=== PATIENT | male | born 1980 | race Caucasian/White ===

== ENCOUNTER 2021-08-17 11:08 | Emergency (ER) | payer BC, SELFPAY ==
[2021-08-17] VITALS (13 sets, daily range): BP systolic 120–148; BP diastolic 80–92; PULSE 84–110; RESP 10–23; TEMP 36.6; O2SAT 97–100
--- NOTE | ~2021-08-17 | XR_ITS ---
EXAMINATION: XR chest 1V portable EXAM DATE: 08/17/2021 12:15 INDICATION: Chest pain. TECHNIQUE: Portable AP frontal chest x-ray was obtained. There is no prior study for comparison. FINDINGS: The lungs are clear. There are no pleural effusions. The cardiomediastinal silhouette is within normal limits. There is no pneumothorax suspected. The bones and soft tissues are unremarkab le. IMPRESSION: No acute cardiopulmonary findings. Reviewed, dictated and finalized at location A.
--- NOTE | ~2021-08-17 | CT_ITS ---
EXAMINATION: CT abdomen pelvis w con DATE: 08/17/2021 13:48 INDICATION: Right lower quadrant abdominal pain TECHNIQUE: Computed tomography (CT) of the abdomen and pelvis was performed with 100 cc Omnipaque 350 intravenous contrast. Automated exposure control and iterative reconstruction technique were employe d. Exam dose: 659.91 mGy-cm total exam DLP. COMPARISON: None. FINDINGS: Minimal dependent atelectasis at the lower lobes. The liver, gallbladder, bile ducts, pancreas, pancreatic duct, spleen, and adrenal glands are unremar kable. Up to approximately 3.2 cm cystic lesion of the right renal upper hilum is noted. The margins are not circumscribed throughout. Cystic hypernephroma is not excluded. Further evaluation with MR examinati on is recommended. No other renal mass lesion or urinary tract calculus or hydroureteronephrosis is detected. Normal caliber of the abdominal aorta. No intraperitoneal or retroperitoneal or pelvic mass lesion or adenopathy or ascites. There are fluid containing small bowel segments and fluid levels of the colon, which is not normal un less the patient has had recent enemas. No small or large bowel abnormal dilatation or bowel wall thi ckening. No pneumatosis. Consider enterocolitis. Normal appendix. No evidence of appendicitis. The urinary bladder, prostate gland and seminal vesicles are unremarkable. Very small fat-containing umbilical hernia. IMPRESSION: 3.2 cm cystic lesion of right renal upper hilum, with some non-circumscribed margins; cy stic hypernephroma is not excluded. MRI renal examination is recommended. Fluid distended small bowel segments and fluid levels of the colon, suggesting enterocolitis Normal appendix Reviewed, dictated and finalized at Location [facility]. Reviewed, dictated and finalized at location B. IMPRESSION: 3.2 cm cystic lesion of right renal upper hilum, with some non-cir cumscribed margins; cystic hypernephroma is not excluded. MRI renal examination is recommended. Fluid distended small bowel segments and fluid levels of the colon, suggesting enterocolitis Normal appendix
--- NOTE | 2021-08-17 11:41 | ECG_ITS ---
Measurements Intervals [place] Rate: 94 P: 57 WA: 162 QRS: 38 QRSD: 88 T: 94 QT: 336 QTc: 420 Interpretive Statements SINUS RHYTHM WITH MARKED SINUS ARRHYTHMIA NONSPECIFIC T-WAVE ABNORMALITY- LAT/HIGH LAT LEADS BASELINE ARTIFACT- I, II, III BORDERLINE ECG Electronically Signed On 08-17-2021 12:15:51 CDT by Nicolás Gasca D.O.
[2021-08-17 11:44] LABS: Basophils Percent Auto 0.2 % (0.2-1.2); Hemoglobin 16.8 g/dL (14.0-18.0); Immature Granulocyte Absolute 0.04 K/mm3 (0.00-0.031); Immature Granulocyte Percent A 0.3 % (0-0.5); Lymphocytes Absolute Auto 0.39 K/mm3 (0.9-3.2); Lymphocytes Percent Auto 3.1 % (18.3-44.2); Mean Corpuscular HGB Conc 33.6 g/dl (32-36); Mean Corpuscular Hemoglobin 29.7 pg (26-34); Mean Corpuscular Volume 88.5 fl (80-100); Mean Platelet Volume 8.9 fl (7.4-10.4); Monocytes Absolute Auto 0.3 K/mm3 (0.1-0.6); Monocytes Percent Auto 2.7 % (2.6-8.5); Neutrophils Absolute Auto 11.9 K/mm3 (1.3-6.7); Neutrophils Percent Auto 93.7 % (45.5-73.1); Platelet Count Result 257 k/mm3 (150-375); Red Blood Count 5.65 M/mm3 (4.6-6.20); Red Cell Distribution Width 13.2 % (11.5-14.5); White Blood Count 12.7 K/mm3 (4.5-10.0)
[2021-08-17 12:09] LABS: Alanine Aminotransferase 25 U/L (4-50); Albumin Level 5.7 g/dL (3.5-5.1); Alkaline Phosphatase 62 U/L (38-126); Anion Gap 15 mmol/L (8-16); Aspartate Amino Transferase 34 U/L (17-59); Bilirubin,Total 1.5 mg/dL (0.2-1.3); Blood Urea Nitrogen 27 mg/dL (9-20); Calcium 10.9 mg/dL (8.4-10.2); Carbon Dioxide 24 mmol/L (22-30); Chloride 104 mmol/L (98-107); Estimated CRCL calculation 62 ml/min; Estimated Glomerular Filt Rate 52; Glucose 117 mg/dL (65-110); Lipase 69 U/L (23-300); Potassium 4.6 mmol/L (3.4-5.0); Sodium 143 mmol/L (137-145)
[2021-08-17] MEDS: LACTATED RINGERS 1,000 ML 999 ML IV CONT ×2 (12:21→12:44)
[2021-08-17] MEDS: ONDANSETRON INJ 4 MG/2 ML VIAL IV PUSH (12:22)
--- NOTE | 2021-08-17 12:40 | ED.NAVMDI ---
HPI - Nausea/Vomiting/Diarrhea General Chief complaint: Nausea/Vomiting/Diarrhea Stated complaint: weak, dizzy, vomiting Time Seen by Provider: 08/17/21 11:37 Source: patient Mode of arrival: ambulatory Limitations: no limitations History of Present Illness HPI Narrative: This is a 40 year old male who presents for evaluation of vomiting and diarrhea. Patient states his daughter is recovering from a stomach bug . He states she was having nausea , vomiting and diarrhea for 3 days and today she seems better. He developed similar symptoms this morning at 2 am. He reports vomiting and diarrhea for the past 8 hours. He states his nausea and vomiting has improved and he was able to drink water over the past hour with our vomiting. He is having cramping upper abdominal pain. He also states he believes he has lost 9 pound today. He is unsure of fever or chills. He denies bloody stools but he states his emesis was bilious on his last episode. He also reports intermittent midsternal chest pain that radiates to his back. He also reports weakness. Related Data Allergies Allergy/AdvReac Type Severity Reaction Status Date / Time esomeprazole AdvReac Unknown Abdominal Verified 08/17/21 12:06 Pain Review of Systems Review of Systems: All systems reviewed & are unremarkable except as noted in HPI and below PMFSH Past Medical History Medical History (Updated 08/17/21 @ 14:22 by Camryn Lovelace MD) Arrhythmia Surgical History Surgical History (Updated 08/17/21 @ 12:51 by Camryn Lovelace MD) No pertinent past surgical history Social History Social History (Updated 08/17/21 @ 12:51 by Camryn Lovelace MD) Smoking status: Never smoker Exam Const: General: no acute distress and alert Orientation/consciousness: patient oriented x3 HENMT: Head: normocephalic and atraumatic Face and sinus: face symmetric Eyes: Pupils: Equal, round and reactive pupils present EOM: EOMs intact bilaterally Resp: Effort & Inspection: normal respiratory effort and no retractions Auscultation: clear to auscultation bilaterally Cardio: Rate: regular rate Rhythm: regular rhythm Heart sounds: no murmurs GI: GI Palp: Yes Soft to palpation, Yes Tenderness to palpation present (GI) (RLQ) and No Guarding due to palpation present (GI) Auscultation: normal bowel sounds Skin: General skin exam: normal color Rashes: no rashes Neuro: General: patient oriented x3, moves all extremities and CN's II-XI intact bilaterally Psych: Mental Status: mental status grossly normal Affect: normal affect Course Reevaluation(s) Reevaluation #1: Patient states he feels alot better and he denies nausea or vomiting. I reviewed CT and he is aware of CT showing renal abnormality. Date: 08/17/21 Time: 14:21 Vital Signs Vital signs: Vital Signs Pulse Rate 105 H 08/17/21 11:21 Respiratory Rate 21 H 08/17/21 11:21 Temperature 97.9 F 08/17/21 11:25 Pulse Rate 95 08/17/21 14:30 Respiratory Rate 20 08/17/21 14:30 Blood Pressure 142/87 H 08/17/21 14:30 Pulse Oximetry 100 08/17/21 14:30 MDM - Nausea/Vomiting/Diarrhea Lab Data Attestation: I reviewed the patient's lab results. Result diagrams: 08/17/21 11:36 08/17/21 11:36 Labs: Lab Results 08/17/21 08/17/21 08/17/21 Range/Units 11:36 11:36 12:35 WBC 12.7 H (4.5-10.0) K/mm3 RBC 5.65 (4.6-6.20) M/mm3 Hgb 16.8 (14.0-18.0) g/dL Hct 50.0 (42.0-52.0) % MCV 88.5 (80-100) fl MCH 29.7 (26-34) pg MCHC 33.6 (32-36) g/dl RDW 13.2 (11.5-14.5) % Plt Count 257 (150-375) k/mm3 MPV 8.9 (7.4-10.4) fl Immature Gran % (Auto) 0.3 (0-0.5) % Neut % (Auto) 93.7 H (45.5-73.1) % Lymph % (Auto) 3.1 L (18.3-44.2) % [place] % (Auto) 2.7 (2.6-8.5) % Eos % (Auto) 0.0 (0-4.4) % Baso % (Auto) 0.2 (0.2-1.2) % Lymph # (Auto) 0.39 L (0.9-3.2) K/mm3 [place] # (Auto) 0.3 (0.1-
[2021-08-17 13:09] LABS: Add Urine Microscopic? YES; Appearance Urine Clear (Clear); Bilirubin Urine 1+ (Negative); Blood Urine Negative (Negative); Color Urine Amber (Yellow); Glucose Urine UA Negative (Negative); Ketones Urine 1+ mg/dL (Negative); Leukocyte Esterase Ur Negative LEU/UL (Negative); Mucus Urine Heavy /lpf; Nitrate Urine Negative (Negative); Protein Urine 2+ mg/dL (Negative)
[2021-08-17 13:15] LABS: Specific Grav Ur 1.031 (1.001-1.035)
[2021-08-17 13:15] LABS: Prothrombin Time 12.9 Seconds (11.1-14.7)
[2021-08-17 13:16] LABS: Partial Thromboplastin Time 26.9 SECONDS (22.3-36.8)
[2021-08-17 13:19] LABS: D Dimer 0.34 ug/mL (<0.48)
[2021-08-17 13:22] LABS: Troponin I < 0.012 ng/mL (0.000-0.034)
== END 2021-08-17 14:41 | disposition home or self-care (01) ==
PROVIDERS: Emergency Medicine; Emergency Provider General Practice; PCP Family Medicine
DX: K52.9 Noninfective gastroenteritis and colitis, unspecified (principal); E86.0 Dehydration; R94.31 Abnormal electrocardiogram [ECG] [EKG]; N28.9 Disorder of kidney and ureter, unspecified
CPT/HCPCS: 36415; 71045; 74177; 80053; 81001; 83690; 84484; 85025; 85380; 85610; 85730; 93005; 96361; 96374; 99284; J2405; J7120; Q9967

== ENCOUNTER 2024-02-14 13:19 | Emergency (ER) | payer OTHER, SELFPAY ==
--- NOTE | ~2024-02-14 | US_ITS ---
US abdomen limited INDICATION: Cholecystitis PROCEDURE: Realtime right upper abdominal ultrasound. COMPARISON: No prior studies for comparison. FINDINGS: The pancreas is normal without focal mass or pancreatic ductal dilation. Liver echotexture is increased, consistent with fatty infiltration. There is normal directional flow in the portal ve in. The gallbladder contains echogenic foci without posterior shadowing which may represent sludge or sto erick. Common bile duct measures 5 mm. No sonographic Larsen's sign. IMPRESSION: 1: Fatty infiltration of the liver. 2: Echogenic foci within the gallbladder lumen which may represent nonshadowing stones or sludge. Reviewed, dictated and finalized at location A.
--- NOTE | ~2024-02-14 | CT_ITS ---
EXAMINATION: CT abdomen pelvis wo con DATE: 02/14/2024 14:05 INDICATION: Left flank pain and right lower quadrant pain. Nausea and vomiting. TECHNIQUE: Computed tomography (CT) of the abdomen and pelvis was performed without intravenous contr ast. Automated exposure control and iterative reconstruction technique were employed. The dose-length product was 913.40 mGy-cm. COMPARISON: None FINDINGS: Visualized lower lungs are clear. Heart size is normal. No pericardial or pleural effusion. Sagittal gradient of increasing density in the dependent gallbladder most likely representing sludge. There ar e few tiny foci of calcific density at the periphery of the gallbladder which could represent either gallstones or focal parenchymal calcifications. Liver is normal. No intra or extrahepatic biliary tracie niecy dilation. Spleen, pancreas, bilateral adrenal glands and left kidney are normal. 1-2 mm stone at the distalmost right ureter within 1 cm of the ureterovesicular junction. There is likely secondary m ild right hydroureteronephrosis and mild proximal right periureteral stranding. Decompressed bladder is unremarkable. The bowels including the appendix are normal. No free intraperitoneal gas or fluid. No pathologically enlarged abdominal or pelvic lymphadenopathy. Mild thoracic and lumbar spondylosis. IMPRESSION: 1. Mild right hydroureteronephrosis secondary to a 1-2 mm stone at the distalmost right ureter. . Gallbladder sludge and a few tiny gallstones versus focal mural calcifications. Reviewed, dictated and finalized at location B. IMPRESSION: 1. Mild right hydroureteronephrosis secondary to a 1-2 mm stone at the distalmo st right ureter. . Gallbladder sludge and a few tiny gallstones versus focal mural calcification s.
[2024-02-14 13:21] VITALS: BP 168/112; PULSE 95; RESP 22; TEMP 36.1; O2SAT 100
--- NOTE | 2024-02-14 13:27 | ED.ABDPAIN ---
HPI - Abdominal Pain General Chief Complaint: Abdominal Pain Stated Complaint: kidney stone Time Seen by Provider: 02/14/24 13:27 Source: patient and family Mode of arrival: ambulatory Limitations: no limitations History of Present Illness HPI narrative: 43 years old white male came to the emergency room with right flank and right lower quadrant pain started 2 1-1/2 hours prior to arrival, associated with nausea and frequent vomiting. Patient is pacing the floor unable to sit still. History of kidney stone. Related Data Allergies Allergy/AdvReac Type Severity Reaction Status Date / Time esomeprazole AdvReac Unknown Abdominal Verified 02/14/24 13:33 Pain Review of Systems Review of Systems: All systems reviewed & are unremarkable except as noted in HPI and below PMFSH Past Medical History Medical History Arrhythmia Surgical History Surgical History No pertinent past surgical history Social History Social History Smoking status: Never smoker Exam Narrative: General appearance: Well-developed, well-nourished, pacing the floor Skin: Normal color Head: Normocephalic, nontraumatic Eyes: Clear conjunctiva ENT: Oropharynx normal, ears normal, nose normal Neck: Supple, nontender Chest and respiratory: Airway patent, no respiratory distress, no accessory muscle use Heart: Regular rate/rhythm Abdomen: Soft, right lower quadrant and right flank tenderness, no organomegaly, quiet bowel sounds Vascular: Normal peripheral pulses, normal capillary refill. Musculoskeletal: Normal range of motion, nontender back Neurologic: Alert and oriented ?3, CARE ASSISTANT is normal as tested, no gross motor deficit Course Vital Signs Vital signs: Vital Signs Temperature 36.1 C L 02/14/24 13:21 Pulse Rate 95 02/14/24 13:21 Respiratory Rate 22 H 02/14/24 13:21 Blood Pressure 168/112 H 02/14/24 13:21 Pulse Oximetry 100 02/14/24 13:21 Oxygen Delivery Room Air 02/14/24 13:21 Temperature 36.1 C L 02/14/24 13:21 Pulse Rate 95 02/14/24 13:21 Respiratory Rate 22 H 02/14/24 13:21 Blood Pressure 168/112 H 02/14/24 13:21 Pulse Oximetry 100 02/14/24 13:21 Oxygen Delivery Room Air 02/14/24 13:21 MDM - Abdominal Pain MDM Narrative Medical decision making narrative: Differential diagnosis kidney stone, urinary tract infection, appendicitis, cholecystitis, constipation, diverticulitis Blood workup showed WBC of 12.5, CT scan of the abdomen and pelvis showed without contrast showed 1-2 mm stone at the right distal ureter Patient received 1 L of normal saline IV, 4 mg of Zofran IV, 0.5 mg of Dilaudid IV, 0.4 mg of Flomax p.o. without any improvement. Toradol 30 mg IV ordered. With remarkable improvement Currently patient started feeling pain at the right upper quadrant, concern about cholecystitis. Abdominal ultrasound ordered Gallbladder ultrasound showed no acute abnormality. Discharged on Flomax, Zofran and [place]. Strain urine. Differential Diagnosis Differential diagnosis: Likely other (As above) Medical Records Attestation: I reviewed the patient's medical records. Lab Data Attestation: I reviewed the patient's lab results. 02/14/24 13:33 02/14/24 13:33 Labs: Lab Results 02/14/24 Range/Units 13:33 WBC 12.5 H (4.5-10.0) K/mm3 RBC 5.38 (4.6-6.20) M/mm3 Hgb 15.5 (14.0-18.0) g/dL Hct 46.8 (42.0-52.0) % MCV 87.0 (80-100) fl MCH 28.8 (26-34) pg MCHC 33.1 (32-36) g/dl RDW 13.1 (11.5-14.5) % Plt Count 266
[2024-02-14] MEDS: SODIUM CHLORIDE 0.9% IV 1,000 ML 999 ML IV CONT (13:38)
[2024-02-14] MEDS: TAMSULOSIN HCL 0.4 MG CAPSULE PO (13:38)
[2024-02-14] MEDS: ONDANSETRON INJ 4 MG/2 ML VIAL IV PUSH (13:38)
[2024-02-14] MEDS: HYDROmorphone HCL INJ (*CRX) 1 MG/ML SYR 0.5 MG IV PUSH (13:39)
[2024-02-14 13:45] LABS: Basophils Percent Auto 0.1 % (0.2-1.2); Hematocrit 46.8 % (42.0-52.0); Hemoglobin 15.5 g/dL (14.0-18.0); Immature Granulocyte Absolute 0.05 K/mm3 (0.00-0.031); Immature Granulocyte Percent A 0.4 % (0-0.5); Lymphocytes Absolute Auto 1.17 K/mm3 (0.9-3.2); Lymphocytes Percent Auto 9.4 % (18.3-44.2); Mean Corpuscular HGB Conc 33.1 g/dl (32-36); Mean Corpuscular Hemoglobin 28.8 pg (26-34); Monocytes Absolute Auto 0.3 K/mm3 (0.1-0.6); Monocytes Percent Auto 2.1 % (2.6-8.5); Platelet Count Result 266 k/mm3 (150-375); Red Blood Count 5.38 M/mm3 (4.6-6.20); Red Cell Distribution Width 13.1 % (11.5-14.5); White Blood Count 12.5 K/mm3 (4.5-10.0)
[2024-02-14 13:52] LABS: Appearance Urine Clear (Clear); Bacteria Urine None Seen /hpf; Bilirubin Urine Negative (Negative); Blood Urine Negative (Negative); Color Urine Yellow (Yellow); Glucose Urine UA Negative (Negative); Ketones Urine Trace mg/dL (Negative); Leukocyte Esterase Ur Negative LEU/UL (Negative); Nitrate Urine Negative (Negative); Non Pathogenic Casts 0-2; Protein Urine Trace mg/dL (Negative); RBC Urine 0-2 /hpf (0-2); Squamous Epithelial Cell Urine None Seen /hpf (Few); WBC Urine 0-5 /hpf (0-3); pH Urine 6.5 (5.0-9.0)
[2024-02-14 13:56] LABS: Add Urine Microscopic? YES; Specific Grav Ur 1.037 (1.001-1.035)
[2024-02-14 14:10] LABS: Alanine Aminotransferase 34 U/L (6-50); Albumin Level 4.9 g/dL (3.5-5.1); Alkaline Phosphatase 49 U/L (38-126); Anion Gap 9 mmol/L (4-12); Aspartate Amino Transferase 42 U/L (17-59); Bilirubin,Total 0.6 mg/dL (0.2-1.3); Blood Urea Nitrogen 14 mg/dL (9-20); Calcium 9.9 mg/dL (8.4-10.2); Carbon Dioxide 24 mmol/L (22-30); Chloride 102 mmol/L (98-107); Estimated CRCL calculation 93 ml/min; Estimated Glomerular Filt Rate > 60; Glucose 126 mg/dL (65-110); Lipase 89 U/L (23-300); Potassium 4.5 mmol/L (3.4-5.0); Sodium 135 mmol/L (137-145)
[2024-02-14] MEDS: KETOROLAC 30 MG/ML VIAL (*BKC) IV PUSH (14:26)
== END 2024-02-14 16:18 | disposition home or self-care (01) ==
PROVIDERS: Emergency Provider Emergency Medicine; PCP Family Medicine
DX: N20.0 Calculus of kidney (principal)
CPT/HCPCS: 36415; 74176; 76705; 80053; 81001; 83690; 85025; 96361; 96374; 96375; 99284; A9270; J1170; J1885; J2405; J7030